=== PATIENT | male | born 1950 | race Caucasian/White ===

== ENCOUNTER 2018-03-05 09:16 | Day surgery (SDC) | payer MEDICARE ==
[~2018-03-05] VITALS: Ht 175.3 cm; Wt 86.1 kg
[2018-03-05] MEDS ORDERED: LACTATED RINGERS 1,000 ML IV SCH (09:48)
[2018-03-05 09:54] VITALS: BP 153/84
[2018-03-05] MEDS ORDERED: PROPOFOL 10 MG/ML, 50ML ONE (11:57)
[2018-03-05] MEDS ORDERED: DIPHENHYDRAMINE 50 MG/ML, 1ML IVPush PRN (13:00)
[2018-03-05] MEDS ORDERED: PLEASE ENTER ALLERGIES MC SCH (13:00)
[2018-03-05] MEDS ORDERED: hydrALAzine 20 MG/ML, 1ML IV PRN (13:00)
[2018-03-05] MEDS ORDERED: FENTANYL PF 100 MCG/2ML IV PRN (13:00)
[2018-03-05] MEDS ORDERED: LABETALOL 5MG/ML, 20ML IV PRN (13:00)
== END 2018-03-05 13:55 | disposition home or self-care (01) ==
LOC: OUT 09:16
PROVIDERS: ATTEND Internal Medicine Geriatric Medicine
DX: C15.9 Malignant neoplasm of esophagus, unspecified (principal); K22.8 Other specified diseases of esophagus; Z86.19 Personal history of other infectious and parasitic diseases
CPT/HCPCS: 43237; 43239; 88172; 88173; 88305; 93005; J2704; J7120

== ENCOUNTER → 2018-04-12 | Outpatient (CLI) | payer MEDICARE ==
[~2018-04-12] MED LIST: OMEP40CA6 PO
[2018-04-12 13:08] LABS: BASOPHILS # (AUTO) 0.01 x10^3/uL (0-0.1); BASOPHILS % (AUTO) 0 % (0-1); EOSINOPHILS % (AUTO) 2 % (1-7); LYMPHOCYTES # (AUTO) 1.57 x10^3/uL (1-3.4); LYMPHOCYTES % (AUTO) 25 % (22-44); MD NO; MEAN CORPUSCULAR HEMOGLOBIN 30.9 pg (27.5-34.5); MEAN CORPUSCULAR HGB CONC 33.9 g/dL (33.2-36.2); MEAN CORPUSCULAR VOLUME 91.2 fL (81-97); MEAN PLATELET VOLUME 8.2 fL (7.4-10.4); MONOCYTES # (AUTO) 0.62 x10^3/uL (0.2-0.8); MONOCYTES % (AUTO) 10 % (2-9); NEUTROPHILS # (AUTO) 4.04 x10^3/uL (1.8-6.8); NEUTROPHILS % (AUTO) 64 % (42-75); PLATELET COUNT 166 x10^3/uL (130-400); RED BLOOD COUNT 5.15 x10^6/uL (4.38-5.82); RED CELL DISTRIBUTION WIDTH 13.4 % (9.4-14.8)
[2018-04-12 13:20] LABS: CALCIUM 9.4 mg/dL (8.5-10.1); CHLORIDE 104 mmol/L (98-107)
[2018-04-12 13:26] LABS: ALANINE AMINOTRANSFERASE 72 U/L (12-78); ALBUMIN 3.7 g/dL (3.4-5.0); ALKALINE PHOSPHATASE 58 U/L (45-117); ANION GAP 5 mmol/L (5-15); BILIRUBIN,TOTAL 0.4 mg/dL (0.2-1.0); CREATININE 0.99 mg/dL (0.7-1.3); TOTAL PROTEIN 8.1 g/dL (6.4-8.2)
== END | disposition home or self-care (01) ==
LOC: STAR 12:06
PROVIDERS: ATTEND Thoracic Surgery (Cardiothoracic Vascular Surgery)
DX: Z01.818 Encounter for other preprocedural examination (principal)
CPT/HCPCS: 36415; 80053; 85025